=== PATIENT | female | born 1975 | race Caucasian/White ===

== ENCOUNTER 2024-10-21 12:22 | Emergency (ER) | payer OTHER ==
[2024-10-21 12:27] VITALS: RESP 18
--- NOTE | 2024-10-21 12:56 | ED ---
General Adult HPI - General Chief complaint: Arrhythmia/Palpitations Stated complaint: Dizziness Time Seen by Provider: 10/21/24 12:31 Source: patient Mode of arrival: ambulatory Limitations: no limitations - History of Present Illness Initial comments: Dictation was produced using [employer] dictation software. please excuse any grammatical, word or spelling errors. Chief Complaint: 49-year-old female with dizziness tachycardia palpitations History of Present Illness: Patient 49-year-old female works for [employer]. Patient states that her symptoms have been intermittent for the last few days. Yesterday was on a motorcycle ride when all of a sudden she started to feel slightly dizzy. States her dizziness is associated with some palpitat ions. She has a history of tachycardia and PVCs. States that she has a mild headache with pain to her right forehead area. She does have a history of headaches seems to be getting them more than usual. Patient has a history of sarcoidosis. States she is currently going through menopause The ROS documented in this emergency department record has been reviewed and confirmed by me. Those systems with pertinent positive or negative responses have been documented in the HPI. All other systems are other negative and/or noncontributory. - Related Data Home Medications Medication Instructions Recorded Confirmed Venlafaxine HCl [Effexor XR] 150 mg PO HS 10/21/24 10/21/24 Previous Rx's Medication Instructions Recorded Meclizine [Antivert] 25 mg PO TID PRN #15 tab 10/21/24 Allergies Allergy/AdvReac Type Severity Reaction Status Date / Time Penicillins Allergy Unknown Verified 10/21/24 14:21 Childhood fluoxetine [From Prozac] AdvReac Unknown Verified 10/21/24 14:21 levofloxacin [From Levaquin] AdvReac Swelling Verified 10/21/24 14:21 Review of Systems ROS Statement: Those systems with pertinent positive or pertinent negative responses have been documented in the HPI. ROS Other: All systems not noted in ROS Statement are negative. Past Medical History Additional Past Medical History / Comment(s): prolonged ST, tachycardia History of Any Multi-Drug Resistant Organisms: None Reported Past Surgical History: Cholecystectomy, Ear Surgery, Hysterectomy, Orthopedic Surgery Past Psychological History: Depression Smoking Status: Former smoker Past Alcohol Use History: Occasional Past Drug Use History: None Reported General Exam - General Exam Comments Initial Comments: PHYSICAL EXAM: General Impression: Alert and oriented x3, not in acute distress HEENT: Normocephalic atraumatic, extra-ocular movements intact, pupils equal and reactive to light bilaterally, mucous membranes moist. Cardiovascular: Heart regular rate and rhythm Chest: Able to complete full sentences, no retractions, no tachypnea Abdomen: abdomen soft, non-tender, non-distended, no organomegaly Musculoskeletal: Pulses present and equal in all extremities, no peripheral edema Motor: no focal deficits noted Neurological: CN II-XII grossly intact, no focal motor or sensory deficits noted, right benign segments, dizziness triggered with going from a sitting to supine position Skin: Intact with no visualized rashes Psych: Normal affect and mood Limitations: no limitations Course Vital Signs 10/21/24 10/21/24 12:23 13:20 Temperature 97.9 F Pulse Rate 85 82 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 155, QRS 90, QTc 411. No NE prolongation, no QTC prolongation, no ST or T-wave changes noted. Overall, this EKG is unremarkable Medical Decision Making - Medical Decision Making Was pt. sent in by a medical professional or institution ([facility], [facility], urgent care, hospital, or half-way...) When possible be specific @ -No Did you speak to anyone other than the patient for history (EMS, parent, family, police, friend...)? What history was obtained from this source @ -No Did you review nursing and triage notes (agree or disagree)? Why? @ -I reviewed and agree with nursing and triage notes Were old charts reviewed (outside hosp., previous admission, EMS record, old EKG, old radiological studies, urgent care reports/EKG's, half-way records)? Report findings @ -No old charts were reviewed Differential Diagnosis (chest pain, altered mental status, abdominal pain women, abdominal pain men, vaginal bleeding, musculoskeletal, weakness, fever, dyspnea, syncope, headache, dizziness, GI bleed, back pain, seizure, CVA, palpatations, mental health)? @ -Differential Dizziness: Benign paroxysmal positional Vertigo, Meniere's disease, otitis media, acoustic neuroma, vertebrobasilar insufficiency, cerebellar stroke, encephalitis, hypovolemic, arrhythmia, coronary artery syndrome, anemia, this is not meant to be an all-inclusive list EKG interpreted by me (3pts min.). @ -See above X-rays interpreted by me (1pt min.). @ -None done CT interpreted by me (1pt min.). @ -CT brain is nonacute U/S interpreted by me (1pt. min.). @ -None done What testing was considered but not performed or refused? (CT, X-rays, U/S, labs)? Why? @ -None What meds were considered but not given or refused? Why? @ -None Was smoking cessation discussed for >3mins.? @ -No Were there social determinants of health that impacted care today? How? (Homelessness, low income, unemployed, alcoholism, drug addiction, transportation, low edu. Level, literacy, decrease access to med. care, halfway, rehab)? @ -No Was there de-escalation of care discussed even if they declined (Discuss DNR or withdrawal of care, Hospice)? DNR status @ -No What co-morbidities impacted this encounter? (DM, HTN, Smoking, COPD, CAD, Cancer, CVA, ARF, Chemo, Hep., AIDS, mental health diagnosis, sleep apnea, morbid obesity)? @ -None Was patient admitted / discharged? Hospital course, mention meds given and route, prescriptions, significant lab abnormalities, going to OR and other pertinent info. @ -49-year-old female with dizziness palpitations. Clinical presentation consistent with benign vertigo. Vital signs stable. Labs unremarkable. CT imaging negative. Patient given headache cocktail and antivertigo medicines with improvement of symptoms. Patient states she feels at baseline and her symptoms are completely resolved. Patient discharged advised follow-up with primary care doctor. Did you discuss the management of the patient with other professionals (professionals i.e. , PA, [facility], lab, RT, psych nurse, social media designer, dialysis patient care technician, teacher, ordnance corps officer, case hardener)? Give summary @ -No Was critical care preformed (if so, how long)? @ -No Undiagnosed new problem with uncertain prognosis? @ -No Drug Therapy requiring intensive monitoring for toxicity (Heparin, Nitro, Insulin, Cardizem)? @ -No Were any procedures done? @ -No Diagnosis/symptom? Acute, or Chronic, or Acute on Chronic? Uncomplicated (without systemic symptoms) or Complicated (systemic symptoms)? @ -Vertigo Side effects of treatment? @ -No Exacerbation, Progression, or Severe Exacerbation? @ -No Poses a threat to life or bodily function? How? (Chest pain, USA, CA, pneumonia, PE, COPD, DKA, ARF, appy, cholecystitis, CVA, Diverticulitis, Homicidal, Suicidal, threat to staff... and all critical care pts) @ -No - Lab Data Result diagrams: 10/21/24 13:32 10/21/24 13:32 Lab Results 10/21/24 10/21/24 10/21/24 Range/Units 13:32 13:32 13:32 WBC 7.17 (4.50-10.00) 10*3/uL RBC 4.78 (4.10-5.20) 10*6/uL Hgb 13.5 (12.0-15.0) g/dL Hct 40.7 (37.2-46.3) % MCV 85.1 (80.0-97.0) fL MCH 28.2 (27.0-32.0) pg MCHC 33.2 (32.0-37.0) g/dL Plt Count 213 (140-440) 10*3/uL MPV 8.8 L (9.5-12.2) fL Immature Gran % (Auto) 0.4 % Neutrophils % 62.3 % Lymphocytes % 25.7 % Monocytes % 7.3 % Eosinophils % 3.2 % Basophils % 1.1 % Immature Gran # 0.03 (0.00-0.04) 10*3/uL Neutrophils # 4.47 (1.80-7.70) 10*3/uL Lymphocytes # 1.84 (0.90-5.00) 10*3/uL Monocytes # 0.52 (0.20-1.00) 10*3/uL Eosinophils # 0.23 (0.04-0.35) 10*3/uL Basophils # 0.08 (0.00-0.10) 10*3/uL Sodium 140 (137-145) mmol/L Potassium 3.7 (3.5-5.1) mmol/L Chloride 104 (98-107) mmol/L Carbon Dioxide 26 (22-30) mmol/L Anion Gap 10 mmol/L BUN 14 (7-17) mg/dL Creatinine 0.64 (0.52-1.04) mg/dL Est GFR (CKD-EPI)AfAm >90 (>60 ml/min/1.73 sqM) Est GFR (CKD-EPI)NonAf >90 (>60 ml/min/1.73 sqM) Glucose 99 (74-99) mg/dL Calcium 9.9 (8.4-10.2) mg/dL Magnesium 2.1 (1.6-2.3) mg/dL Troponin I <0.012 (0.000-0.034) ng/mL Disposition Clinical Impression: Vertigo Disposition: HOME SELF-CARE Condition: Fair Instructions (If sedation given, give patient instructions): Vertigo (ED) Prescriptions: Meclizine [Antivert] 25 mg PO TID PRN #15 tab PRN Reason: dizziness Is patient prescribed a controlled substance at d/c from ED?: No Referrals: Nonstaff,Physician [Primary Care Provider] - 1-2 days Time of Disposition: 14:43
[2024-10-21] MEDS: METOCLOPRAMIDE 5 MG/ML 2 ML VIAL IVP STA (13:34)
[2024-10-21] MEDS: SODIUM CHLORIDE 0.9% 1,000 ML IV STA (13:35)
[2024-10-21] MEDS: KETOROLAC 15 MG/ML 1 ML VIAL IVP STA (13:35)
[2024-10-21] MEDS: diphenhydrAMINE 50 MG/ML 1 ML VIAL IVP STA (13:36)
[2024-10-21 13:48] LABS: Basophils # (A) 0.08 10*3/uL (0.00-0.10); Basophils % (A) 1.1 %; Eosinophils # (A) 0.23 10*3/uL (0.04-0.35); Eosinophils % (A) 3.2 %; HCT 40.7 % (37.2-46.3); HGB 13.5 g/dL (12.0-15.0); Lymphocytes # (A) 1.84 10*3/uL (0.90-5.00); Lymphocytes % (A) 25.7 %; MCH 28.2 pg (27.0-32.0); MCHC 33.2 g/dL (32.0-37.0); MCV 85.1 fL (80.0-97.0); Monocytes # (A) 0.52 10*3/uL (0.20-1.00); Monocytes % (A) 7.3 %; Neutrophils # (A) 4.47 10*3/uL (1.80-7.70); Neutrophils % (A) 62.3 %; Platelet Count 213 10*3/uL (140-440); RBC 4.78 10*6/uL (4.10-5.20); RDW 13.8 % (11.5-14.5); WBC 7.17 10*3/uL (4.50-10.00)
[2024-10-21] MEDS: MECLIZINE 12.5 MG TAB PO STA (13:58)
[2024-10-21 14:00] LABS: African American GFR (CKD) >90 (>60 ml/min/1.73 sqM); Anion Gap 10 mmol/L; Blood Urea Nitrogen 14 mg/dL (7-17); Calcium 9.9 mg/dL (8.4-10.2); Carbon Dioxide 26 mmol/L (22-30); Chloride 104 mmol/L (98-107); Glucose 99 mg/dL (74-99); Magnesium 2.1 mg/dL (1.6-2.3); Non-African American GFR(CKD) >90 (>60 ml/min/1.73 sqM); Potassium 3.7 mmol/L (3.5-5.1); Sodium 140 mmol/L (137-145)
--- NOTE | 2024-10-21 14:19 | CT ---
EXAMINATION TYPE: CT brain wo con CT DLP: 1141.4 mGycm, Automated exposure control for dose reduction was used. DATE OF EXAM: 10/21/2024 2:13 PM COMPARISON: None. CLINICAL INDICATION:Female, 49 years old with history of vertigo, dizziness and vertigo TECHNIQUE: Brain: Multiple axial CT images of the brain were obtained without IV contrast. . Coronal and sagitta l reformats reviewed. FINDINGS: Brain: Extra-axial spaces: No abnormal extra-axial fluid collections. Anterior falx calcification. Ventricular system: Within normal limits Cerebral parenchyma: No acute intraparenchymal hemorrhage or mass effect. The reyez-white junction is well differentiated. Cerebellum: Unremarkable. Mass effect: No evidence of midline shift. Intracranial vasculature: unremarkable Soft tissues: Normal. Calvarium/osseous structures: No depressed skull fracture. Paranasal sinuses and mastoid air cells: Clear Visualized orbits: Orbital contents are intact. IMPRESSION: No acute intracranial process. [facility], , 10/21/2024 2:17 PM
[2024-10-21 15:06] VITALS: BP 132/63; PULSE 72; TEMP 98
== END 2024-10-21 15:06 | disposition home or self-care (01) ==
LOC: EC 12:22
DX: R42 Dizziness and giddiness (principal); Z87.891 Personal history of nicotine dependence; Z88.0 Allergy status to penicillin; Z88.1 Allergy status to other antibiotic agents; Z88.8 Allergy status to other drugs, medicaments and biological substances
CPT/HCPCS: 36415; 93005; 80048; 83735; 84484; 85025; 70450; 99285; 96374; 96375 ×2; 96361; J1200; J2765; J1885